=== PATIENT | female | born 1960 | race Caucasian/White ===

== ENCOUNTER 2023-04-03 18:43 | Emergency (ER) | payer MEDICARE, MEDICAID, SELFPAY ==
[2023-04-03] VITALS (28 sets, daily range): BP systolic 87–110; BP diastolic 55–78; PULSE 87–106; RESP 0–37; TEMP 36.9; O2SAT 96–99; BMI 43.5
--- NOTE | 2023-04-03 19:21 | ECG_ITS ---
The [facility] Test Date: 2023-04-03 Pat Name: ASHLEIGH PEREIRA Department: Room: - Gender: Female [employer]: : 1960 Requested By: [id number] Order Number: [id number] Reading MD: EDWARD ALICEA Measurements Intervals [place] Rate: 86 P: -38 OK: 204 QRS: -60 QRSD: 80 T: 14 QT: 340 QTc: 384 Interpretive Statements Sinus rhythm with first degree AV block 2630 Left anterior fascicular block Remote inferolateral NV 8102 Low QRS voltage in chest leads 9150 abnormal ECG No previous ECG available for comparison Electronically Signed On 04-04-2023 10:08:26 EST by EDWARD ALICEA
--- NOTE | 2023-04-03 19:21 | XR_ITS ---
The [address] [address] Patient Name: ASHLEIGH PEREIRA MRN: [id number] date: 1960 Sex: F Assigned Patient Location: ER Current Patient Location: ER Accession/Order Number: [id number] Exam Date: 04/03/2023 19:58 Report Date: 04/03/2023 20:12 At the request of: HORTENCIA ALMONTE Procedure: XR chest 1V EXAM: XR chest 1V at 1952 hours HISTORY: CP COMPARISON: None. TECHNIQUE: AP upright portable chest x-ray FINDINGS: The heart is at the upper limits of normal in size. The vasculature is not distended. No acute infiltrate, effusion or pneumothorax is identified. A large bore central venous catheter is in place on the right with the tip in the right atrium. The osseous structures are grossly intact. XR/XR chest 1V IMPRESSION: No acute infiltrate or evidence of cardiac decompensation. The right-sided catheter is in place. Direct comparison with a previous study may be helpful in determining the chronicity of these findings. Electronically authenticated by: DEEPALI KWONG Date: 04/03/2023 20:12
--- NOTE | 2023-04-03 19:22 | ED_ITS ---
HPI - Chest Pain General Chief Complaint: Chest Pain Stated Complaint: clot during dialysis, irreg heart rate Time Seen by Provider: 04/03/23 19:09 Source: patient Mode of arrival: ambulance Limitations: no limitations History of Present Illness HPI narrative: 62-year-old female presents for chest pain. She does home hemodialysis and she does about two and half hours five times a week. She takes two and half mill igrams of Eliquis before each dialysis treatment which is five times a week. She was about an hour and a half into dialysis tonight and the blood wasn't returning and she since that something was wrong so she disconnected that hemodialysis machine from her port. She pulled out she states a 3 inch long clot from one of the ports. she had some pain on the right side of her chest and the left side of her chest and she felt a little bit short of breath and she called the ambulance and she was brought in here. No fever or productive cough. She had no problems with her hemodialysis yesterday. Related Data Home Medications Medication Instructions Recorded Confirmed apixaban 2.5 mg tablet (Eliquis) 2.5 mg PO DAILY 04/03/23 04/03/23 atorvastatin 40 mg tablet 40 mg PO DAILY 04/03/23 04/03/23 calcium acetate(phosphat bind) 667 667 mg PO TID 04/03/23 04/03/23 mg capsule clopidogrel 75 mg tablet 75 mg PO DAILY 04/03/23 04/03/23 cyclobenzaprine 10 mg tablet 10 mg PO DAILY 04/03/23 04/03/23 fluoxetine 20 mg capsule 60 mg PO DAILY 04/03/23 04/03/23 hydrocodone 5 mg-acetaminophen 325 tab 04/03/23 mg tablet levothyroxine 137 mcg tablet 137 mcg PO DAILY 04/03/23 04/03/23 levothyroxine 150 mcg tablet 150 mcg PO DAILY 04/03/23 04/03/23 lorazepam 1 mg tablet 1 mg PO DAILY 04/03/23 04/03/23 midodrine 10 mg tablet 10 mg PO TID 04/03/23 04/03/23 nystatin 100,000 unit/gram topical topical 04/03/23 cream oxybutynin chloride 5 mg tablet 5 mg PO DAILY 04/03/23 04/03/23 pantoprazole 40 mg tablet,delayed 40 mg PO DAILY 04/03/23 04/03/23 release Allergies Allergy/AdvReac Type Severity Reaction Status Date / Time heparin AdvReac Intermediate Verified 04/03/23 18:46 Sulfa (Sulfonamide AdvReac Intermediate Verified 04/03/23 18:46 Antibiotics) Review of Systems ROS Narrative A ten point review of systems is negative except as noted above. PFSH PFSH Social History Smoking status: Never smoker Exam Narrative Exam Narrative: Nurses note and vital signs reviewed and patient is not hypoxic. General: The patient appears well and in no apparent distress. Patient is resting comfortably on cart. Skin: Warm, dry, no pallor noted. There is no rash noted. Head: Normocephalic, atraumatic Eye: Normal conjunctiva, no drainage Ears, Nose, Mouth, and Throat: oral mucosa is moist. Nares patent. Cardiovascular: Regular Rate and Rhythm Respiratory: Patient is in no distress, no accessory muscle use, lungs are clear to auscultation, no wheezing, rales or rhonchi Back: non-tender GI: obese soft and nontender Musculoskeletal: The patient has no evidence of calf tenderness, no pitting edema, symmetrical pulses noted bilaterally Neurological: A&O, normal speech Psychiatric: Cooperative Constitutional Vital Signs, click to edit/add: Last Vital Signs Temp 98.5 F 04/03/23 18:46 Pulse 87 04/04/23 03:27 Resp 16 04/04/23 03:27 BP 107/79 04/04/23 03:18 Pulse Ox 96 04/04/23 03:27 O2 Del Method Room Air 04/03/23 18:46 Course Vital Signs Vital signs: Vital Signs Temperature 98.5 F 04/03/23 18:46 Pulse Rate 90 04/03/23 18:46 Respiratory Rate 18 04/03/23 18:46 Blood Pressure 87/56 L 04/03/23 18:46 Pulse Oximetry 97 04/03/23 18:46 Oxygen Delivery Method Room Air 04/03/23 18:46 Temperature 98.5 F 04/03/23 18:46 Pulse Rate 87 04/04/23 03:27 Respiratory Rate 16 04/04/23 03:27 Blood Pressure 107/79 04/04/23 03:18 Pulse Oximetry 96 04/04/23 03:27 Oxygen Delivery Method Room Air 04/03/23 18:46 MDM - Chest Pain MDM Narrative Medical decision making narrative: The patient has a clotted dialysis catheter. At this point I don't suspect pulmonary embolism. She doesn't seem to have any chest pain and she is already anticoagulated. The patient does home dialysis five times a week and will need new dialysis catheter or declotting of this one. I spoke to nurse practitioner at [facility] and the patient is accepted there. The patient refused to be transferred to [facility]. Her [facility]st choice was [facility] but I spoke to the admitting physician there and they do not have interventional radiology or vascular surgery available for this patient. Differential Diagnosis Differential diagnosis: Likely other (clotted dialysis catheter) Lab Data Attestation: I reviewed the patient's lab results. Labs: Lab Results 04/03/23 Range/Units 19:34 WBC 10.2 (4.0-11.0) 10^3/uL RBC 4.92 (4.20-5.40) 10^6/uL Hgb 12.9 (12.0-16.0) g/dL Hct 43.6 (36.0-48.0) % MCV 88.6 (81.0-99.0) fL MCH 26.2 L (26.7-34.0) pg MCHC 29.6 L (29.9-35.2) g/dL RDW 19.9 H (11.0-15.0) % Plt Count 155 (150-450) 10^3/uL MPV 10.4 (9.5-13.5) fL Neut % (Auto) 80.2 H (43.0-75.0) % Lymph % (Auto) 10.9 L (20.5-60.0) % [place] % (Auto) 7.2 (1.7-12.0) % Eos % (Auto) 0.8 L (0.9-7.0) % Baso % (Auto) 0.5 (0.2-2.0) % Neut # (Auto) 8.2 H (1.4-6.5) 10^3/uL Lymph # (Auto) 1.1 L (1.2-3.8) 10^3/uL [place] # (Auto) 0.7 (0.3-0.8) 10^3/uL Eos # (Auto) 0.1 (0.0-0.7) 10^3/uL Baso # (Auto) 0.1 (0.0-0.1) 10^3/uL Abs Immat Gran (auto) 0.04 H (0.00-0.03) 10^3/uL Imm/Tot Granulo (auto) 0.4 (0.0-0.5) % PT 9.8 (9.0-11.6) sec INR <0.93 APTT 28.5 (22.3-36.2) sec Sodium 135 L (136-145) mmol/L Potassium 4.8 (3.5-5.1) mmol/L Chloride 98 (98-107) mmol/L Carbon Dioxide 27.4 (21.0-32.0) mmol/L Anion Gap 14.4 BUN 57.0 H (7.0-18.0) mg/dL Creatinine 8.24 H* (0.55-1.02) mg/dL Est GFR ( Amer) 6 L (>=60) Est GFR (Non-Af Amer) 5 L (>=60) BUN/Creatinine Ratio 6.9 Glucose 206 H (74-106) mg/dL Calcium 9.9 (8.5-10.1) mg/dL Troponin I High Sens 23.6 (4.0-51.3) pg/mL Imaging Data Chest x-ray: Radiologist's impression: ITS Impressions Chest X-Ray 04/03/23 19:21 IMPRESSION: No acute infiltrate or evidence of cardiac decompensation. The right-sided catheter is in place. Direct comparison with a previous study may be helpful in determining the chronicity of these findings. Electronically authenticated by: DEEPALI KWONG Date: 04/03/2023 20:12 ECG Data Attestation: I personally reviewed and interpreted this ECG as follows: (EKG on my interpretation shows sinus rhythm without acute changes) Heart Score History: Slightly/Non-Suspicious ECG: Normal Age: >45-<65 years Risk Factors: 1 or 2 Risk Factors Troponin: <Normal Limit Total Heart Score Recommendations & Risks:: 2 Discharge Plan Discharge Chief Complaint: Chest Pain Clinical Impression: Dialysis complication Patient Disposition: [facility] Time of Disposition Decision: 03:49 Discharge Location: [facility] [address] Condition: Good Mode of Transportation: EMS
--- NOTE | 2023-04-03 19:22 | PC.NURSE ---
Patient states she was 1.5 hours into her dialysis treatment when she heard her alarm going off that her port was occluded. patient states she removed a 3 inch clot from the port and turned off her treatment. patient stated to have mild chest pain 7/10 as she was removing the clot but has since resolved.
[2023-04-03 19:44] LABS: Basophils Absolute Auto 0.1 10^3/uL (0.0-0.1); Basophils Percent Auto 0.5 % (0.2-2.0); Eosinophils Absolute Auto 0.1 10^3/uL (0.0-0.7); Eosinophils Percent Auto 0.8 % (0.9-7.0); Hematocrit 43.6 % (36.0-48.0); Hemoglobin 12.9 g/dL (12.0-16.0); Immature Granulocytes Abs Auto 0.04 10^3/uL (0.00-0.03); Immature Granulocytes Pct Auto 0.4 % (0.0-0.5); Lymphocytes Absolute Auto 1.1 10^3/uL (1.2-3.8); Lymphocytes Percent Auto 10.9 % (20.5-60.0); Mean Corpuscular HGB Conc 29.6 g/dL (29.9-35.2); Mean Corpuscular Hemoglobin 26.2 pg (26.7-34.0); Mean Corpuscular Volume 88.6 fL (81.0-99.0); Mean Platelet Volume 10.4 fL (9.5-13.5); Monocytes Absolute Auto 0.7 10^3/uL (0.3-0.8); Monocytes Percent Auto 7.2 % (1.7-12.0); Neutrophils Absolute Auto 8.2 10^3/uL (1.4-6.5); Neutrophils Percent Auto 80.2 % (43.0-75.0); Platelet Count 155 10^3/uL (150-450); Red Blood Count 4.92 10^6/uL (4.20-5.40); Red Cell Distribution Width 19.9 % (11.0-15.0); White Blood Count 10.2 10^3/uL (4.0-11.0)
[2023-04-03 20:00] LABS: Partial Thromboplastin Time 28.5 sec (22.3-36.2); Prothrombin Time 9.8 sec (9.0-11.6)
[2023-04-03 20:02] LABS: Anion Gap 14.4; BUN Creatinine Ratio 6.9; Calcium 9.9 mg/dL (8.5-10.1); Carbon Dioxide 27.4 mmol/L (21.0-32.0); Chloride 98 mmol/L (98-107); Estimated GFR (African America 6 (>=60); Estimated GFR (Non-African Ame 5 (>=60); Glucose 206 mg/dL (74-106); Potassium 4.8 mmol/L (3.5-5.1); Sodium 135 mmol/L (136-145); Troponin I High Sensitivity 23.6 pg/mL (4.0-51.3)
[2023-04-03 20:05] LABS: INR <0.93
--- NOTE | 2023-04-03 20:20 | PC.NURSE ---
0 respirations entered in error
--- NOTE | 2023-04-03 22:33 | PC.NURSE ---
Had lengthy discussion with pt about her plan of care, pt disagrees that she needs to go a certain facility, feels that she could go to [facility] now and have her port replaced. Both RN and Dr Dewey explained to pt that we already reached out to [facility] and they are unable to accept pt at this time due to not having the appropriate physician there to do facility. Pt states that she understands, but then states that it shouldn't matter where she goes, she has gone 7 days without dialysis before. Explained to pt that her options are either to be transferred to a facility that will accept her, or she would have to leave AMA. Pt states I guess I don't have a choice . Pt requesting night time meds and a meal. Dr Dewey aware and agreeable to both. Pt will be provided with a hospital bed for comfort and we are expecting a bed assignment Thursday morning after discharges, per . 's gardening supervisor.
[2023-04-03] MEDS: OXYBUTYNIN CHLORIDE 5 MG TAB XL PO (23:35)
[2023-04-03] MEDS: CLOPIDOGREL BISULFATE 75 MG TABLET PO (23:35)
[2023-04-03] MEDS: LORAZEPAM 1 MG TABLET PO (23:35)
[2023-04-03] MEDS: CYCLOBENZAPRINE HCL 10 MG TABLET PO (23:35)
[2023-04-03] MEDS: ATORVASTATIN CALCIUM 40 MG TABLET PO (23:35)
[2023-04-03] MEDS: FLUOXETINE HCL 20 MG CAPSULE 60 MG PO (23:36)
[2023-04-04] VITALS (26 sets, daily range): BP systolic 91–126; BP diastolic 64–80; PULSE 87; RESP 16; O2SAT 90–97
== END 2023-04-04 10:20 | disposition short-term general hospital (02) ==
PROVIDERS: Emergency Provider Emergency Medicine
DX: T82.898A Other specified complication of vascular prosthetic devices, implants and grafts, initial encounter (principal); Z79.01 Long term (current) use of anticoagulants; Z79.899 Other long term (current) drug therapy; Z79.890 Hormone replacement therapy
CPT/HCPCS: 36415; 71045; 80048; 84484; 85025; 85610; 85730; 93005; 99285